=== PATIENT | female | born 2000 | race Two or more races ===

== ENCOUNTER 2023-09-04 20:47 | Emergency (ER) | payer OTHER ==
[~2023-09-04] VITALS: Ht 157.5 cm; Wt 51.3 kg
[2023-09-04] MEDS ORDERED: PRENA1 CHEW TA1.4 MG (21:11)
[2023-09-04 23:35] LABS: HEMATOCRIT 31.3 % (36.0-45.00); HEMOGLOBIN 10.6 g/dL (12.0-15.00); MEAN CELL VOLUME 82.3 fL (80.00-100.00); MEAN CORPUSCULAR HEMOGLOBIN 27.9 pg (27.00-32.0); MEAN CORPUSCULAR HGB CONC 33.9 g/dl (32.0-36.0); PLATELET COUNT 151 K/uL (150-450); RED CELL DISTRIBUTION WIDTH 13.4 % (11.5-14.5)
[2023-09-05] MEDS ORDERED: PROAIR RESPICL90 MCG IH (00:23)
[2023-09-05] MEDS ORDERED: ZITHROMAX500 MG PO (00:23)
[2023-09-05] MEDS ORDERED: TUSSIN100 MG/51 PO (00:23)
== END 2023-09-05 00:44 | disposition home or self-care (01) ==
LOC: ER 20:47
DX: O98.512 Other viral diseases complicating pregnancy, second trimester (principal); U07.1 COVID-19; Z3A.15 15 weeks gestation of pregnancy; Z88.0 Allergy status to penicillin

== ENCOUNTER 2023-11-16 16:05 | Outpatient (CLI) | payer OTHER ==
[~2023-11-16 16:05] MED LIST: PRENA1 CHEW TA1.4 MG; PROAIR RESPICL90 MCG IH; TUSSIN100 MG/51 PO; ZITHROMAX500 MG PO
== END 2023-11-16 16:30 | disposition home or self-care (01) ==
LOC: PRENATAL 16:05
PROVIDERS: ATTEND Obstetrics & Gynecology Maternal & Fetal Medicine
DX: O35.3XX0 Maternal care for (suspected) damage to fetus from viral disease in mother, not applicable or unspecified (principal); O44.00 Complete placenta previa NOS or without hemorrhage, unspecified trimester; Z3A.25 25 weeks gestation of pregnancy

== ENCOUNTER → 2023-12-29 16:04 | Outpatient (CLI) | payer OTHER | END | disposition home or self-care (01) | LOC: PRENATAL 16:04 | PROVIDERS: ATTEND Obstetrics & Gynecology Maternal & Fetal Medicine | DX: O26.849 Uterine size-date discrepancy, unspecified trimester (principal); O36.8199 Decreased fetal movements, unspecified trimester, other fetus; Z3A.32 32 weeks gestation of pregnancy ==

== ENCOUNTER 2024-07-23 15:18 | Emergency (ER) | payer OTHER ==
[~2024-07-23] VITALS: Ht 157.5 cm; Wt 50.8 kg
[~2024-07-23 15:18] MED LIST changes: +FOLIC ACID0.8 M1 PO
[2024-07-23 17:03] LABS: HEMATOCRIT 34.8 % (36.0-45.00); HEMOGLOBIN 11.8 g/dL (12.0-15.00); MEAN CELL VOLUME 79.7 fL (80.00-100.00); MEAN CORPUSCULAR HGB CONC 33.9 g/dl (32.0-36.0); PLATELET COUNT 263 K/uL (150-450); RED BLOOD COUNT 4.36 M/uL (4.00-6.00); RED CELL DISTRIBUTION WIDTH 14.8 % (11.5-14.5)
[2024-07-23 18:08] LABS: URINE APPEARANCE Clear; URINE BILIRRUBIN Negative (NEGATIVE); URINE BLOOD Negative; URINE COLOR Yellow; URINE GLUCOSE Negative (NEGATIVE); URINE KETONE Trace (NEGATIVE); URINE LEUKOCYTE Small; URINE NITRATE Negative; URINE PROTEIN Trace (NEGATIVE)
[2024-07-23 18:11] LABS: URINE BACTERIA 2185.9 uL (0.0-1933); URINE EPITHELIAL CELLS 41.8 uL (0.0-38.8); URINE RBC 3.8 uL (0.0-20.8); URINE WBC 104.8 uL (0.0-23.2)
[2024-07-23 18:48] LABS: URINE CAST 0.15 uL (0.0-1.40); URINE MUCUS HEAVY
== END 2024-07-23 20:58 | disposition home or self-care (01) ==
LOC: ER 15:20
PROVIDERS: Emergency Medicine
DX: O26.891 Other specified pregnancy related conditions, first trimester (principal); R10.2 Pelvic and perineal pain; Z3A.11 11 weeks gestation of pregnancy; Z88.0 Allergy status to penicillin

== ENCOUNTER 2024-10-05 11:18 | Outpatient (CLI) | payer OTHER | END 2024-10-05 11:53 | disposition home or self-care (01) | LOC: PRENATAL 11:18 | PROVIDERS: ATTEND Obstetrics & Gynecology Maternal & Fetal Medicine | DX: O44.00 Complete placenta previa NOS or without hemorrhage, unspecified trimester (principal); O36.1999 Maternal care for other isoimmunization, unspecified trimester, other fetus; Z3A.22 22 weeks gestation of pregnancy ==

== ENCOUNTER 2024-10-15 16:53 | Outpatient (CLI) | payer OTHER ==
[~2024-10-15] VITALS: Ht 160 cm; Wt 54.4 kg
[2024-10-15 16:03] VITALS: BP 117/67
[2024-10-15] MEDS ORDERED: RINGERS SOLUTION,LACTATED 1,000 ML IV SCH (17:00)
[2024-10-15 17:23] LABS: URINE APPEARANCE Cloudy; URINE BILIRRUBIN Negative (NEGATIVE); URINE BLOOD Negative; URINE COLOR Yellow; URINE KETONE Trace (NEGATIVE); URINE LEUKOCYTE Trace; URINE NITRATE Negative; URINE PROTEIN Trace (NEGATIVE)
[2024-10-15 17:24] LABS: HEMATOCRIT 29.9 % (36.0-45.00); MEAN CELL VOLUME 83.2 fL (80.00-100.00); MEAN CORPUSCULAR HEMOGLOBIN 27.9 pg (27.00-32.0); MEAN CORPUSCULAR HGB CONC 33.6 g/dl (32.0-36.0); PLATELET COUNT 217 K/uL (150-450); RED BLOOD COUNT 3.59 M/uL (4.00-6.00); RED CELL DISTRIBUTION WIDTH 15.1 % (11.5-14.5); URINE BACTERIA 772.3 uL (0.0-1933); URINE EPITHELIAL CELLS 49.2 uL (0.0-38.8); URINE RBC 3.6 uL (0.0-20.8); URINE WBC 70.1 uL (0.0-23.2)
[2024-10-15 17:50] LABS: ALBUMIN 2.6 gm/dL (3.4-5.0); BILIRUBIN TOTAL 0.34 mg/dL (0.3-1.2); CALCIUM 8.9 mg/dL (8.5-10.1); CREATININE SERUM 0.41 mg/dL (0.55-1.02); GFR 193.99; GLOBULINA 3.3 G/DL (2.4-3.5); POTASSIUM 4.05 mEq/L (3.5-5.1); TOTAL PROTEIN 5.9 gm/dL (6.4-8.2)
[2024-10-15 18:06] LABS: URINE CAST 0.29 uL (0.0-1.40); URINE CRYSTALS FEW /HPF; URINE GLUCOSE 250 MG/DL (NEGATIVE)
[2024-10-15] MEDS ORDERED: MEPERIDINE HCL/PF 50 MG/ML VIAL IV PRN (19:30)
[2024-10-15] MEDS ORDERED: PROMETHAZINE HCL 25 MG/ML AMPUL IV PRN (19:30)
[2024-10-15 20:08] VITALS: BP 96/58; O2SAT 99
[2024-10-15 23:17] VITALS: BP 100/57
[2024-10-16 03:34] VITALS: BP 93/55
[2024-10-16 06:01] VITALS: BP 99/61; O2SAT 100
[2024-10-16 11:25] VITALS: BP 100/64
== END 2024-10-16 12:41 | disposition home or self-care (01) ==
LOC: OBS/DEL 16:53
PROVIDERS: Specialist; ATTEND Obstetrics & Gynecology
DX: O23.42 Unspecified infection of urinary tract in pregnancy, second trimester (principal); N39.0 Urinary tract infection, site not specified; O26.849 Uterine size-date discrepancy, unspecified trimester; O60.00 Preterm labor without delivery, unspecified trimester; O36.8310 Maternal care for abnormalities of the fetal heart rate or rhythm, first trimester, not applicable or unspecified; Z3A.23 23 weeks gestation of pregnancy

== ENCOUNTER → 2024-11-16 09:56 | Outpatient (CLI) | payer OTHER | END | disposition home or self-care (01) | LOC: PRENATAL 09:56 | PROVIDERS: ATTEND Obstetrics & Gynecology Maternal & Fetal Medicine | DX: O26.849 Uterine size-date discrepancy, unspecified trimester (principal); O36.8199 Decreased fetal movements, unspecified trimester, other fetus; O36.1999 Maternal care for other isoimmunization, unspecified trimester, other fetus; O36.8310 Maternal care for abnormalities of the fetal heart rate or rhythm, first trimester, not applicable or unspecified; Z3A.28 28 weeks gestation of pregnancy ==

== ENCOUNTER → 2025-01-04 08:26 | Outpatient (CLI) | payer OTHER | END | disposition home or self-care (01) | LOC: PRENATAL 01-03 17:05 | PROVIDERS: ATTEND Obstetrics & Gynecology Maternal & Fetal Medicine | DX: O26.849 Uterine size-date discrepancy, unspecified trimester (principal); O36.8199 Decreased fetal movements, unspecified trimester, other fetus; O99.019 Anemia complicating pregnancy, unspecified trimester; O36.1999 Maternal care for other isoimmunization, unspecified trimester, other fetus; Z3A.35 35 weeks gestation of pregnancy ==

== ENCOUNTER 2025-01-07 14:06 | Inpatient (IN) | payer OTHER ==
[~2025-01-07] VITALS: Ht 160 cm; Wt 57.2 kg
[2025-01-07 13:43] VITALS: BP 114/75; O2SAT 99
[2025-01-07] MEDS ORDERED: CLINDAMYCIN PHOSPHATE 150 MG/ML (900mg) ONE (14:13)
[2025-01-07] MEDS ORDERED: RINGERS SOLUTION,LACTATED 1,000 ML IV SCH (14:15)
[2025-01-07] MEDS ORDERED: CLINDAMYCIN PHOSPHATE 150 MG/ML (900mg) IV SCH (14:15)
[2025-01-07 15:15] VITALS: BP 102/62
[2025-01-07 15:24] LABS: PH,URINE 6.5 (5.0-8.0); URINE APPEARANCE Clear; URINE BILIRRUBIN Negative (NEGATIVE); URINE BLOOD Negative; URINE COLOR Yellow; URINE GLUCOSE Negative (NEGATIVE); URINE KETONE Trace (NEGATIVE); URINE LEUKOCYTE Trace; URINE NITRATE Negative; URINE PROTEIN Trace (NEGATIVE)
[2025-01-07 15:24] LABS: HEMATOCRIT 26.8 % (36.0-45.00); MEAN CELL VOLUME 78.4 fL (80.00-100.00); MEAN CORPUSCULAR HEMOGLOBIN 25.1 pg (27.00-32.0); PLATELET COUNT 199 K/uL (150-450); RED BLOOD COUNT 3.42 M/uL (4.00-6.00); RED CELL DISTRIBUTION WIDTH 15.9 % (11.5-14.5)
[2025-01-07 15:28] LABS: URINE BACTERIA 974.2 uL (0.0-1933); URINE EPITHELIAL CELLS 22.1 uL (0.0-38.8); URINE WBC 21.6 uL (0.0-23.2)
[2025-01-07 15:45] LABS: INR 0.94; PARTIAL THROMBOPLASTIN TIME 23.3 SECONDS (22.0-34.0); PROTHROMBIN TIME 10.3 SECONDS (9.0-11.5)
[2025-01-07 15:48] LABS: HEMOGLOBIN 8.6 g/dL (12.0-15.00)
[2025-01-07 15:49] LABS: URINE CAST 0.29 uL (0.0-1.40); URINE RBC 1.4 uL (0.0-20.8)
[2025-01-07 15:49] LABS: ALBUMIN 2.8 gm/dL (3.4-5.0); BILIRUBIN TOTAL 0.36 mg/dL (0.3-1.2); CALCIUM 9.2 mg/dL (8.5-10.1); CREATININE SERUM 0.44 mg/dL (0.55-1.02); GFR 178.81; GLOBULINA 3.8 G/DL (2.4-3.5); POTASSIUM 3.89 mEq/L (3.5-5.1); TOTAL PROTEIN 6.6 gm/dL (6.4-8.2)
[2025-01-07] MEDS ORDERED: TERBUTALINE SULFATE 1 MG/ML AMPUL ONE (16:25)
[2025-01-07] MEDS ORDERED: SOD FERRIC GLUC COMPLX/SUCROSE 62.5 MG in 0.9 % SODIUM CHLORIDE 50 ML IV SCH (16:30)
[2025-01-07] MEDS ORDERED: FERROUS SULFATE 325 MG TABLET.EC PO SCH (16:30)
[2025-01-07] MEDS ORDERED: SOD FERRIC GLUC COMPLX/SUCROSE 62.5 MG/5 ML AMPUL IV ONE (17:07)
[2025-01-07] MEDS ORDERED: FERROUS SULFATE 325 MG TABLET.EC PO ONE (17:09)
[2025-01-07] MEDS ORDERED: TERBUTALINE SULFATE 1 MG/ML AMPUL SUBCUTANEO SCH (18:00)
[2025-01-07 19:11] VITALS: BP 110/62
[2025-01-07 23:11] VITALS: BP 106/63
[2025-01-08 03:05] VITALS: BP 92/55
[2025-01-08 07:41] VITALS: BP 106/53
[2025-01-08] MEDS ORDERED: BETAMETHASONE ACETATE,SOD PHOS 30 MG/5 ML ML ONE (08:24)
[2025-01-08] MEDS ORDERED: BETAMETHASONE ACETATE,SOD PHOS 30 MG/5 ML ML IM ONE (08:45)
[2025-01-08] MEDS ORDERED: FAMOtidine 40 MG TABLET PO SCH (11:00)
[2025-01-08 11:51] VITALS: BP 91/55
[2025-01-08 15:15] VITALS: BP 105/52
[2025-01-08 19:14] VITALS: BP 94/51
[2025-01-08 23:35] VITALS: BP 107/54
[2025-01-09 03:43] VITALS: BP 103/50
[2025-01-09 06:02] VITALS: BP 114/68; O2SAT 99
[2025-01-09] MEDS ORDERED: BETAMETHASONE ACETATE,SOD PHOS 30 MG/5 ML ML IM ONE (08:35)
[2025-01-09 11:23] VITALS: BP 97/54; O2SAT 97
[2025-01-09 15:15] VITALS: BP 101/60
[2025-01-09 19:26] VITALS: BP 113/59; O2SAT 99
[2025-01-09] MEDS ORDERED: ACETAMINOPHEN 500 MG GEL..CAP PO NR (19:45)
[2025-01-09 23:13] VITALS: BP 109/68
[2025-01-10 03:31] VITALS: BP 105/62
[2025-01-10 06:43] VITALS: BP 112/70; O2SAT 99
[2025-01-10 07:52] LABS: MEAN CELL VOLUME 78.7 fL (80.00-100.00); MEAN CORPUSCULAR HGB CONC 32.4 g/dl (32.0-36.0); PLATELET COUNT 163 K/uL (150-450); RED BLOOD COUNT 2.95 M/uL (4.00-6.00); RED CELL DISTRIBUTION WIDTH 16.6 % (11.5-14.5)
[2025-01-10 07:55] LABS: HEMATOCRIT 23.3 % (36.0-45.00); MEAN CORPUSCULAR HEMOGLOBIN 25.4 pg (27.00-32.0)
[2025-01-10 07:56] LABS: HEMOGLOBIN 7.5 g/dL (12.0-15.00)
[2025-01-10 11:07] VITALS: BP 103/66
[2025-01-10 15:15] VITALS: BP 99/52
[2025-01-10 19:07] VITALS: BP 104/66
[2025-01-10 23:05] VITALS: BP 115/64
[2025-01-11] MEDS ORDERED: MORPHINE SULFATE 4 MG/ML VIAL IV ONE (05:15)
[2025-01-11 05:22] VITALS: BP 123/83
[2025-01-11 06:09] VITALS: BP 116/68; O2SAT 97
[2025-01-11 06:23] LABS: HEMATOCRIT 28.2 % (36.0-45.00); MEAN CELL VOLUME 80.8 fL (80.00-100.00); MEAN CORPUSCULAR HGB CONC 33.5 g/dl (32.0-36.0); PLATELET COUNT 162 K/uL (150-450); RED BLOOD COUNT 3.49 M/uL (4.00-6.00); RED CELL DISTRIBUTION WIDTH 17.4 % (11.5-14.5)
[2025-01-11 06:55] LABS: HEMOGLOBIN 9.4 g/dL (12.0-15.00); MEAN CORPUSCULAR HEMOGLOBIN 26.9 pg (27.00-32.0)
[2025-01-11] MEDS ORDERED: ERYTHROMYCIN BASE OPHT 1GM EACH TUBE OP ONE ×2 (08:28→10:45)
[2025-01-11] MEDS ORDERED: OXYTOCIN 20 UNITS/1000ML RL PIGGYBAG IV ONE (08:28)
[2025-01-11] MEDS ORDERED: CHLORHEXIDINE GLUCONATE 120 ML BOTTLE TOP ONE ×2 (08:29→10:45)
[2025-01-11] MEDS ORDERED: LIDOCAINE HCL 1% 10ML VIAL ONE (08:29)
[2025-01-11] MEDS ORDERED: OXYTOCIN 20 UNITS/500ML RL PIGGYBAG IV ONE (08:29)
[2025-01-11] MEDS ORDERED: OXYTOCIN 500 ML IV SCH (08:45)
[2025-01-11] MEDS ORDERED: IBUprofen 400 MG TABLET PO PRN (09:15)
[2025-01-11] MEDS ORDERED: OXYTOCIN 1,000 ML IV SCH (10:45)
[2025-01-11 11:50] VITALS: BP 123/73
[2025-01-11 16:35] VITALS: BP 118/74
[2025-01-11 17:36] LABS: HEMATOCRIT 34.5 % (36.0-45.00); HEMOGLOBIN 11.1 g/dL (12.0-15.00); MEAN CELL VOLUME 81.2 fL (80.00-100.00); MEAN CORPUSCULAR HEMOGLOBIN 26.1 pg (27.00-32.0); MEAN CORPUSCULAR HGB CONC 32.1 g/dl (32.0-36.0); PLATELET COUNT 205 K/uL (150-450); RED BLOOD COUNT 4.25 M/uL (4.00-6.00); RED CELL DISTRIBUTION WIDTH 17.9 % (11.5-14.5)
[2025-01-12] VITALS: BP 109/70
[2025-01-12 08:22] VITALS: BP 122/77
[2025-01-12] MEDS ORDERED: PNV,CALCIUM 72/IRON/FOLIC ACID 1 TAB TABLET PO SCH (09:00)
[2025-01-12 17:00] VITALS: BP 121/76
[2025-01-13] VITALS: BP 102/62
[2025-01-13 11:09] VITALS: BP 118/68
== END 2025-01-13 16:32 | disposition home or self-care (01) | DRG 805 ==
LOC: LDR 14:06 → OB/GYN 01-11 10:55
PROVIDERS: Specialist; ADMIT Obstetrics & Gynecology; ATTEND Obstetrics & Gynecology
PROC: 4A1HXCZ Monitoring of Products of Conception, Cardiac Rate, External Approach (ICD-10-PCS; 2025-01-07)
PROC: BY4FZZZ Ultrasonography of Third Trimester, Single Fetus (ICD-10-PCS; 2025-01-08)
PROC: BU4CZZZ Ultrasonography of Uterus and Ovaries (ICD-10-PCS; 2025-01-08)
PROC: BY4FZZZ Ultrasonography of Third Trimester, Single Fetus (ICD-10-PCS; 2025-01-10)
PROC: BU4CZZZ Ultrasonography of Uterus and Ovaries (ICD-10-PCS; 2025-01-10)
PROC: 30233N1 Transfusion of Nonautologous Red Blood Cells into Peripheral Vein, Percutaneous Approach (ICD-10-PCS; 2025-01-10)
PROC: 10E0XZZ Delivery of Products of Conception, External Approach (ICD-10-PCS; principal; 2025-01-11)
DX: O36.8130 Decreased fetal movements, third trimester, not applicable or unspecified (principal); O60.14X0 Preterm labor third trimester with preterm delivery third trimester, not applicable or unspecified; O36.0930 Maternal care for other rhesus isoimmunization, third trimester, not applicable or unspecified; O26.873 Cervical shortening, third trimester; O99.02 Anemia complicating childbirth; Z3A.35 35 weeks gestation of pregnancy; D51.0 Vitamin B12 deficiency anemia due to intrinsic factor deficiency; O26.853 Spotting complicating pregnancy, third trimester; O36.8310 Maternal care for abnormalities of the fetal heart rate or rhythm, first trimester, not applicable or unspecified; Z37.0 Single live birth